=== PATIENT | female | born 2000 | race Caucasian/White ===

== ENCOUNTER → 2020-05-21 11:01 | Outpatient (CLI) | payer SELFPAY ==
[2020-04-13 12:40] VITALS: BMI 19.6
[2020-05-21 11:20] LABS: Absolute Lymphocyte Count 1.44 X10^3/uL (0.83-4.51); Absolute Neutrophil Count 5.9 X10^3/uL (2.0-7.7); Basophil# 0.05 X10^3/uL; Basophil% 0.6 % (0-1); Eosinophil# 0.12 X10^3/uL; Eosinophils% 1.5 % (0-5); Hematocrit 38.4 % (37-47); Hemoglobin 13.1 g/dL (12.0-15.0); Lymphocyte # 1.44 X10^3/ul (4.0); Lymphocyte % 17.6 % (19-41); Mean Corp Hgb Conc 34.1 g/dL (32-36); Mean Corpuscular Hgb 29.2 pg (27.0-32.0); Mean Corpuscular Volume 85.7 fL (81-99); Mean Platelet Vol. 9.4 fl (6.2-12.0); Monocyte# 0.69 X10^3/uL; Monocyte% 8.4 % (0-10); NRBC Flagged by Analyzer 0 % (0-5); Neutrophil # 5.87 X10^3/uL (2.7-7.7); Neutrophil % 71.7 % (47-70); Platelet Count 289 K/mm3 (150-450); RBC Distribution Width CV 12.6 % (11.6-14.6); RBC Distribution Width SD 39.1 fl (35.1-43.9); Red Blood Count 4.48 M/mm3 (4.2-5.4); White Blood Count 8.2 K/mm3 (4.4-11.0)
[2020-05-21 12:33] LABS: HIV - WCH Non-Reactive (Nonreactive); Hepatitis B Surface Antigen Non-Reactive (Nonreactive); Hepatitis C Antibody Non-Reactive (Nonreactive); Rubella IgG Reactive (Nonreactive)
[2020-05-21 18:54] LABS: Amphetamine Urine VISTA NEGATIVE (<1000 ng/mL); Barbiturate Urine VISTA NEGATIVE (< 200 ng/mL); Benzodiazepine Urine VISTA NEGATIVE (< 200 ng/mL); Cocaine Urine VISTA NEGATIVE (< 300 ng/mL); Ecstacy Urine VISTA NEGATIVE (< 500 ng/mL); Methadone Urine VISTA NEGATIVE (< 300 ng/mL); PCP Urine VISTA NEGATIVE (< 25 ng/mL); THC Urine VISTA NEGATIVE (< 50 ng/mL); Vista UDS pH Range 6
[2020-05-22 03:33] LABS: Rapid Plasmin Reagin (RPR) NONREACTIVE (NONREACTIVE)
[2020-05-26 08:08] LABS: Chlamydia By Nucleic Acid AMP Negative (Negative)
[2020-05-26 09:52] LABS: Gonococcus By Nucleic Acid AMP Negative (Negative)
[2020-05-26 16:43] LABS: HPV Reflexed? NOT INDICATED
== END ==
PROVIDERS: Referring Provider Obstetrics & Gynecology; Visit Provider Obstetrics & Gynecology
DX: Z34.90 Encounter for supervision of normal pregnancy, unspecified, unspecified trimester (principal)
CPT/HCPCS: 36415; 80307; 85025; 86592; 86703; 86762; 86803; 86850; 86900; 86901; 87086; 87340; 87491; 87591; 88175; G0145

== ENCOUNTER → 2020-07-24 16:34 | Outpatient (CLI) | payer SELFPAY ==
[2020-07-24 14:42] VITALS: BMI 22.3
== END ==
PROVIDERS: Referring Provider Obstetrics & Gynecology; Visit Provider Obstetrics & Gynecology
DX: O26.899 Other specified pregnancy related conditions, unspecified trimester (principal); R10.2 Pelvic and perineal pain; Z3A.00 Weeks of gestation of pregnancy not specified
CPT/HCPCS: 87086; 87088

== ENCOUNTER → 2020-07-29 13:46 | Outpatient (CLI) | payer SELFPAY ==
[2020-06-18 09:39] VITALS: BMI 21.2
[2020-07-24 14:42] VITALS: BMI 22.3
--- NOTE | 2020-07-29 13:49 | US_ITS ---
STUDY: SECOND AND THIRD TRIMESTER OBSTETRICAL ULTRASOUND REASON FOR EXAM: Female, 19 years old anatomy LMP: 03/13/2020. TECHNIQUE: Transabdominal TECHNICAL QUALITY: Adequate. PRIOR ULTRASOUND: None. FINDINGS: There is a single intrauterine fetus. The fetus is in a transverse lie with the head on the maternal right side. There is demonstrated cardiac activity with a heart rate of 130 bpm. There is a normal amniotic fluid volume. The largest amniotic fluid pocket measures 7 cm x 3.3 cm. The amniotic fluid index (NAIF) is within normal limits. The placenta is anterior in location and is not low lying. There are Grade 0 placental changes. The cervix measures 4.6 cm in length. The bilateral adnexal regions are normal. BIOMETRY: BPD: 4.38 cm: 19 weeks, 1 days HC: 17.19 cm: 19 weeks, 5 days AC: 14.8 cm: 20 weeks, 0 days FL: 3.12 cm: 19 weeks, 4 days CI: 71.5% FL/BPD: 71.4% FL/HC: FL/AC: 21.1% HC/AC: 1.16 age by current US: 19 weeks, 3 days. LISA by current US: 12/20/2020. Estimated weight: 316 grams, +/- 47 grams, 51 %. Age by LMP: 19 weeks, 5 days. LISA by LMP: 12/18/2020. ANATOMY: Gender: Female Cranium: Normal lateral ventricles. Normal choroid plexus. Normal cerebellum. Normal cisterna magna. Normal face, nose and lips. Chest: Normal 4-chamber heart. Abdomen/Pelvis: Normal diaphragm. Normal stomach. Normal abdominal wall. Normal cord insertion. Normal 3 vessel cord. Normal kidneys. Normal bladder. Spine: Normal cervical spine. Normal thoracic spine. Normal lumbar spine. Normal sacrum. Extremities: Normal bilateral upper extremities. Normal bilateral lower extremities. US/OB Anatomy Scan IMPRESSION: Single live uterine gestation with a mean gestational age of 19 weeks and 3 days. Electronically Signed: Mark Ballard MD at 15:03 EST , Service support ,
== END ==
PROVIDERS: Referring Provider Obstetrics & Gynecology; Visit Provider Obstetrics & Gynecology
DX: Z34.90 Encounter for supervision of normal pregnancy, unspecified, unspecified trimester (principal)
CPT/HCPCS: 76805

== ENCOUNTER → 2020-09-10 10:55 | Outpatient (CLI) | payer SELFPAY ==
[2020-08-13 11:50] VITALS: BMI 22.8
[2020-09-10 11:13] LABS: Absolute Lymphocyte Count 1.66 X10^3/uL (0.83-4.51); Absolute Neutrophil Count 7.1 X10^3/uL (2.0-7.7); Basophil# 0.03 X10^3/uL; Basophil% 0.3 % (0-1); Eosinophil# 0.12 X10^3/uL; Eosinophils% 1.2 % (0-5); Hematocrit 34.7 % (37-47); Hemoglobin 11.9 g/dL (12.0-15.0); Lymphocyte # 1.66 X10^3/ul (4.0); Lymphocyte % 17.2 % (19-41); Mean Corp Hgb Conc 34.3 g/dL (32-36); Mean Corpuscular Hgb 31.6 pg (27.0-32.0); Mean Platelet Vol. 9.4 fl (6.2-12.0); Monocyte# 0.69 X10^3/uL; Monocyte% 7.2 % (0-10); NRBC Flagged by Analyzer 0 % (0-5); Neutrophil % 73.7 % (47-70); Platelet Count 247 K/mm3 (150-450); RBC Distribution Width CV 13.2 % (11.6-14.6); RBC Distribution Width SD 43.5 fl (35.1-43.9); Red Blood Count 3.77 M/mm3 (4.2-5.4); White Blood Count 9.6 K/mm3 (4.4-11.0)
[2020-09-10 11:39] LABS: Glucose Challenge Gest 1H 50g 118 mg/dL (70-140)
== END ==
PROVIDERS: Referring Provider Obstetrics & Gynecology; Visit Provider Obstetrics & Gynecology
DX: Z34.90 Encounter for supervision of normal pregnancy, unspecified, unspecified trimester (principal)
CPT/HCPCS: 36415; 82950; 85025

== ENCOUNTER → 2020-11-23 16:29 | Outpatient (CLI) | payer SELFPAY ==
[2020-11-23 13:35] VITALS: BMI 24.8
== END ==
PROVIDERS: Referring Provider Obstetrics & Gynecology; Visit Provider Obstetrics & Gynecology
DX: Z34.90 Encounter for supervision of normal pregnancy, unspecified, unspecified trimester (principal)
CPT/HCPCS: 87081

== ENCOUNTER → 2020-12-14 18:28 | Outpatient (CLI) | payer SELFPAY ==
[2020-12-14 13:59] VITALS: BMI 24.8
--- NOTE | 2020-12-14 18:33 | US_ITS ---
STUDY: SECOND AND THIRD TRIMESTER OBSTETRICAL ULTRASOUND - LIMITED REASON FOR EXAM: Female, 20 years old routine survey LMP: 03/13/2020 PRIOR ULTRASOUND: 07/29/2020 TECHNIQUE: Transabdominal TECHNICAL QUALITY: Adequate. FINDINGS: There is a single intrauterine fetus. The fetus is in a cephalic presentation. There is demonstrated cardiac activity with a heart rate of 153 bpm. There is a normal amniotic fluid volume. The largest amniotic fluid pocket measures 3.5 cm. The amniotic fluid index (NAIF) is 12.13 cm. The placenta is anterior in location and is not low lying. There are Grade 2 placental changes. The cervix was not visualized BIOMETRY: BPD: 8.90 cm: 36 weeks, 0 days HC: 33.42 cm: 38 weeks, 1 days AC: 33.41 cm: 37 weeks, 2 days FL: 7.13 cm: 36 weeks, 3 days LISA by previous study, 19 weeks, 3 days with LISA of 12/20/2020 age by current US: 36 weeks, 5 days. LISA by current US: 01/06/2021. Estimated weight: 3094 grams, +/- 464 grams, 18 percentile. US/OB Limited With Biometrics IMPRESSION: Single live intrauterine at 36 weeks, 5 days by current ultrasound. LISA of 01/06/2021. Heart rate of 153 bpm. No suspicious sonographic findings LISA on current study measures 2 weeks later than on the previous study Electronically Signed: Todd Ramirez MD at 19:17 EDT , Service support ,
== END ==
PROVIDERS: Visit Provider Obstetrics & Gynecology
DX: Z34.93 Encounter for supervision of normal pregnancy, unspecified, third trimester (principal)
CPT/HCPCS: 76816

== ENCOUNTER 2020-12-23 08:34 | Inpatient (IN) | payer SELFPAY ==
[2020-12-14 13:59] VITALS: BMI 24.8
[2020-12-23] VITALS (11 sets, daily range): BP systolic 98–125; BP diastolic 51–88; PULSE 79–117; RESP 18; TEMP 37.1–37.7; O2SAT 99; BMI 26.2
[2020-12-23 09:05] LABS: Absolute Lymphocyte Count 2.25 X10^3/uL (0.83-4.51); Absolute Neutrophil Count 11.3 X10^3/uL (2.0-7.7); Basophil# 0.05 X10^3/uL; Basophil% 0.3 % (0-1); Eosinophil# 0.08 X10^3/uL; Eosinophils% 0.5 % (0-5); Hematocrit 39.9 % (37-47); Hemoglobin 13.6 g/dL (12.0-15.0); Lymphocyte # 2.25 X10^3/ul (0.83-4.51); Lymphocyte % 15.4 % (19-41); Mean Corp Hgb Conc 34.1 g/dL (32-36); Mean Corpuscular Hgb 31.2 pg (27.0-32.0); Mean Corpuscular Volume 91.5 fL (81-99); Mean Platelet Vol. 11.1 fl (6.2-12.0); Monocyte# 0.77 X10^3/uL; Monocyte% 5.3 % (0-10); NRBC Flagged by Analyzer 0 % (0-5); Neutrophil # 11.34 X10^3/uL (2.7-7.7); Platelet Count 213 K/mm3 (150-450); RBC Distribution Width CV 13.2 % (11.6-14.6); RBC Distribution Width SD 44.1 fl (35.1-43.9); Red Blood Count 4.36 M/mm3 (4.2-5.4); White Blood Count 14.6 K/mm3 (4.4-11.0)
[2020-12-23] MEDS: 0.9% Saline Lock 10 ML Syringe IV (09:25)
--- NOTE | 2020-12-23 12:26 | HP.PCM.OB_ITS ---
HPI - General General Date of Admission: 12/23/20 HPI Narrative HAVEN RICKS, is a 20 F at 40 weeks who presents in active labor Maternal Data Information LISA Calculator Estimated Delivery Date Method Current WG Current Estimate 12/18/20 LMP (Certain) 40w 5d Other Estimates 12/14/20 Ultrasound #1 41w 2d PFSH PFSH Home Medications multivitamin no.47-iron fum 27 mg-folate no.1 1 mg-dha 300 mg capsule cap PO 05/12/20 [History Last Taken Unknown] Allergy/AdvReac Type Severity Reaction Status Date / Time No Known Allergies Allergy Verified 12/07/20 13:43 Surgical History History of hernia surgery Social History adopted: No household members: spouse current occupational status: employed Smoking Status: Never smoker second hand exposure: No alcohol intake: never substance use type: does not use what type of physical activity do you participate in: walking seatbelt use: always do you feel safe at home: Yes additional social history: Urszula- Works at a [employer] 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 History 1 Elective abortions Hx Para 0 Spontaneous abortions Hx # Term Pregnancies Ectopic pregnancies Hx # Pregnancies Multiple births # of living children Visit Details Expected Delivery Route/Plan Labor Preferences- CB/BF classes: yes labor support person: Urszula labor intervention preferences: minimal pain management options preferred: limited interventions cut cord/dad catch: yes : yes PP control planned: condoms discussed possible routes of delivery and associated risks: [] special requests: [] Plans flu vaccine: no tdap vaccine: considering rhogam: na LARC form signed: yes movement and labor precautions reviewed. Problem list reviewed and updated with the most current plan of care details and appropriate orders placed. Relevant counseling for the gestational age provided. Continue routine care and follow up unless otherwise noted in visit notes/problem list details OB Flowsheet Initial Weight: 108 lb Date -?-?-?-?-?-?-?-?-?-?-?-?- EGA Weight BP Urine Prot -?-?-?-?-?-?-?-?-?-?-?-?- Glucose FHR FuHt Pres Dilation -?-?-?-?-?-?-?-?-?-?-?-?- Effaced St Visit Note 05/21/20 -?-?-?-?-?-?-?-?-?-?-?-?- 9w 6d 108 lb 8 oz (+8 oz) 130/70 -?-?-?-?-?-?-?-?-?-?-?-?- 170 -?-?-?-?-?-?-?-?-?-?-?-?- GP - CRL 31mm co nsistent with LMP 06/18/20 -?-?-?-?-?-?-?-?-?-?-?-?- 13w 6d 112 lb 8 oz (+4 lb 8 oz) 130/70 Negative -?-?-?-?-?-?-?-?-?-?-?-?- Negative 145 -?-?-?-?-?-?-?-?-?-?-?-?- GP - no cramping or bleeding. Anatomy scan ordered. PRR. 07/15/20 -?-?-?-?-?-?-?-?-?-?-?-?- 17w 5d 117 lb 2 oz (+9 lb 2 oz) 118/80 Negative -?-?-?-?-?-?-?-?-?-?-?-?- Negative 148 -?-?-?-?-?-?-?-?-?-?-?-?- MH-NO VB, LOF. S ome flutters. US is 07/29. 08/13/20 -?-?-?-?-?-?-?-?-?-?-?-?- 21w 6d 121 lb (+13 lb) 118/72 Negative -?-?-?-?-?-?-?-?-?-?-?-?- Negative 145 -?-?-?-?-?-?-?-?-?-?-?-?- GP - no LOF, VB, DFM, ctx. Having a girl! Discussed CB classes. 09/10/20 -?-?-?-?-?-?-?-?-?-?-?-?- 25w 6d 126 lb 4 oz (+18 lb 4 oz) 118/68 Negative -?-?-?-?-?-?-?-?-?-?-?-?- Negative 150 25 -?-?-?-?-?-?-?-?-?-?-?-?- GP - no LOF, VB, DFM, ctx. 28w labs reviewed and normal 09/24/20 -?-?-?-?-?-?-?-?-?-?-?-?- 27w 6d 125 lb 8 oz (+17 lb 8 oz) 106/60 Negative -?-?-?-?-?-?-?-?-?-?-?-?- Negative 142 27 -?-?-?-?-?-?-?-?-?-?-?-?- MH-No Vb, LOF. G ood FM. Reviewed normal 28 wk labs. Declines tdap. May do later. LARC 10/19/20 -?-?-?-?-?-?-?-?-?-?-?-?- 31w 3d 131 lb 6 oz (+23 lb 6 oz) 132/76 Negative -?-?-?-?-?-?-?-?-?-?-?-?- Negative 140 30 -?-?-?-?-?-?-?-?-?-?-?-?- GP - no LOF, VB, DFM, ctx. Denies complaints. Discussed pediatricians. 11/02/20 -?-?-?-?-?-?-?-?-?-?-?-?- 33w 3d 134 lb (+26 lb) 96/62 Negative -?-?-?-?-?-?-?-?-?-?-?-?- Negative 140 32 Cephalic -?-?-?-?--?-?-?-?-?-?-?-?- SM- no vb lof go od fm no regular ctx 11/18/20 -?-?-?-?-?-?-?-?-?-?-?-?- 35w 5d 140 lb 4 oz (+32 lb 4 oz) 130/70 Negative -?-?-?-?-?-?-?-?-?-?-?-?- Negative 155 35 Cephalic -?-?-?-?-?-?-?-?-?-?-?-?- GP - no LOF, VB, DFM, ctx. Denies complaints. 11/23/20 -?-?-?-?-?-?-?-?-?-?-?-?- 36w 3d 136 lb (+28 lb) 104/76 Negative -?-?-?-?-?-?-?-?-?-?-?-?- Negative 140 35 Cephalic 1 -?-?-?-?-?-?-?--?-?-?-?-?- 50 -1 SM- no vb lof good fm no regular ctx gbs 11/30/20 -?-?-?-?-?-?-?-?-?-?-?-?- 37w 3d 139 lb (+31 lb) 122/82 Negative -?-?-?-?-?-?-?-?-?-?-?-?- Negative 140 150 36 Cephalic 2 -?-?-?-?-?-?-?-?-?-?-?-?- 70 -1 SM- no vb lo SM- no vb lof good fm no egu lar ctx 12/07/20 -?-?-?-?-?-?-?-?-?-?-?-?- 38w 3d 142 lb (+34 lb) 124/68 Negative -?-?-?-?-?-?-?-?-?-?-?-?- Negative 155 38 Cephalic 3 -?-?-?-?-?-?-?-?-?-?-?-?- 70 -1 GP - no LO F, VB, DFM, ctx. Membranes swept today. 12/14/20 -?-?-?-?-?-?-?-?-?-?-?-?- 39w 3d 139 lb (+31 lb) 122/84 Negative -?-?-?-?-?-?-?-?-?-?-?-?- Negative 135 35 Cephalic 3 -?-?-?-?-?-?-?-?-?-?-?-?- 70 0 SM- no vb lof good fm n oreuglar ctx. discussed FH drop, check growth us 12/23/20 -?-?-?-?-?-?-?-?-?-?-?-?- 40w 5d 138 lb 14.259 oz (+30 lb 14.259 oz) 125/88 106/56 98/51 107/55 111/58 105/57 111/58 110/55 115/66 -?-?-?-?-?-?-?-?-?-?-?-?- -?-?-?-?-?-?-?-?-?-?-?-?- NST FHR Rate Baby A Baseline: 140 Variability:: Moderate Accelerations:: 15 x 15 Decelerations:: Variable FHR Category:: Category II Uterine Activity:: q2 min ROS Eyes Eyes: Reports systems reviewed and no addt'l complaints, except as documented ENT HEENT: Reports systems reviewed and no addt'l complaints, except as documented Cardiovascular Cardiovascular: Reports systems reviewed and no addt'l complaints, except as documented Respiratory/Chest Respiratory/Chest: Reports systems reviewed and no addt'l complaints, except as documented Gastrointestinal Gastrointestinal: Reports systems reviewed and no addt'l complaints, except as documented Genitourinary Genitourinary: Reports systems reviewed and no addt'l complaints, except as documented Musculoskeletal Musculoskeletal: Reports systems reviewed and no addt'l complaints, except as documented Integumentary Integumentary: Reports systems reviewed and no addt'l complaints, except as documented Neurologic Neurologic: Reports systems reviewed and no addt'l complaints, except as documented Psychiatric Psychiatric: Reports systems reviewed and no addt'l complaints, except as documented Endocrine Endocrinology: Reports systems reviewed and no addt'l complaints, except as documented Hematologic/Lymphatic Hematologic/Lymphatic: Reports systems reviewed and no addt'l complaints, except as documented Allergic/Immunologic Allergic/Immunologic: Reports systems reviewed and no addt'l complaints, except as documented Vital Signs Vital Signs Vital Signs: 12/23/20 08:43 12/23/20 10:19 12/23/20 10:33 Pulse Rate 89 79 88 Blood Pressure 125/88 H 106/56 L 98/51 L BP Systolic 125 106 98 BP Diastolic 88 56 51 12/23/20 10:48 12/23/20 11:03 12/23/20 11:18 Pulse Rate 85 84 83 Blood Pressure 107/55 L 111/58 L 105/57 L BP Systolic 107 111 105 BP Diastolic 55 58 57 12/23/20 11:33 12/23/20 11:48 12/23/20 12:00 Pulse Rate 88 87 117 H Blood Pressure 111/58 L 110/55 L 115/66 BP Systolic 111 110 115 BP Diastolic 58 55 66 Weight Weight: 138 lb 14.259 oz Body Mass Index (BMI) 26.2 Physical Exam Const alert, oriented x3, no apparent distress, average body habitus, healthy appearing and well nourished HEENT normocephalic and moist oral mucous membranes Head and Scalp: atraumatic Eyes PERRL and EOMs intact bilaterally Neck full ROM Resp normal respiratory effort, no retractions and no use of accessory muscles Cardio regular rate and regular rhythm GI soft to palpation, non-tender and non-distended Extremity normal to inspection and full ROM Skin no rashes or lesions noted Neuro no focal motor deficits and no sensory deficits noted Psych mental status grossly normal, affect normal, speech normal and activity/motor behavior normal Labs Labs Labs: Blood Type A POSITIVE Antibody Screen NEGATIVE Hct 39.9 % (37-47) Hgb 13.6 g/dL (12.0-15.0) Obstetrics US Rubella IgG Antibody Reactive (Nonreactive) Hep Bs Antigen Non-Reactive (Nonreactive) Neisseria gonorrhoeae DNA (EVELYNE) Negative (Negative) HIV 1&2 Antibody Non-Reactive (Nonreactive) Glucose 1 Hr 50 gm 118 mg/dL (70-140) Assessment & Plan (1) Uterine size-date discrepancy, third trimester: COMMENT: US normal along with normal NAIF (2) Supervision of normal : QUALIFIERS: Normal : normal first Trimester: third trimester Qualified Code(s): Z34.03 - Encounter for supervision of normal first , third trimester COMMENT: PRR LISA: 12/18/20 Spouse: Urszula (3) : QUALIFIERS: Weeks of gestation: 39 weeks Qualified Code(s): Z3A.39 - 39 weeks gestation of COMMENT: declines genetic, carrier and NTD; NL anatomy GBS negative (4) Active labor at term: PLAN: Patient presents IAL, plan expectant management for , pitocin/AROM PRN if needed. Pain management: desires natural. GBS negative. Management of any complications: none I have reviewed the [facility] and made any clinically relevant updates.
--- NOTE | 2020-12-23 12:32 | EX.PCM.OBRPT ---
Assessment & Plan (1) Active labor at term: (2) Spontaneous vaginal delivery: (3) Uterine size-date discrepancy, third trimester: COMMENT: US normal along with normal NAIF (4) 35 weeks gestation of : COMMENT: electronic covid test ordered 11/17/20 (5) Supervision of normal : QUALIFIERS: Normal : normal first Trimester: third trimester Qualified Code(s): Z34.03 - Encounter for supervision of normal first , third trimester COMMENT: PRR LISA: 12/18/20 Spouse: Urszula (6) : QUALIFIERS: Weeks of gestation: 39 weeks Qualified Code(s): Z3A.39 - 39 weeks gestation of COMMENT: declines genetic, carrier and NTD; NL anatomy GBS negative Maternal Data Information LISA Calculator Estimated Delivery Date Method Current WG Current Estimate 12/18/20 LMP (Certain) 40w 5d Other Estimates 12/14/20 Ultrasound #1 41w 2d Vaginal Delivery Maternal Presentation Maternal Presentation: Active Labor Maternal Presentation: 20-year-old G1, P0 at 40 weeks gestation admitted in active labor. Patient made rapid cervical change from, to complete dilation after being augmented with artificial rupture of membranes Type of Induction: Amniotomy Operative Information Date of Procedure: 12/23/20 Pre-Operative Diagnosis: Term , active labor Post-Operative Diagnosis: Same Surgery / Procedure Performed: Spontaneous Vaginal Delivery Type of Anesthesia: Local with 1% Lidocaine Estimated Blood Loss: 150 cc Findings Description of Procedure: Patient began pushing and delivered the head in the MITCHELL presentation. The head was delivered atraumatically and no nuchal cord was noted. The anterior and posterior shoulders delivered without complication followed by the rest of the infant and the infant was placed on the maternal abdomen. Delayed cord clamping was employed for approximately 60 seconds. Cord was clamped and cut and gentle traction was applied to the cord and the placenta delivered spontaneously immediately following it was noted to be intact with three-vessel cord. The perineum and vagina were inspected and a midline second-degree perineal laceration was noted and repaired in standard fashion using 3-0 Vicryl Rapide suture. EBL was 150 cc. Patient and tolerated delivery well. Presentation: Vertex and MITCHELL Amniotic Membrane Rupture Type: Artificial Amniotic Fluid Description: Clear Placental Delivery Description: Spontaneous Placenta Disposition: [facility] Cord Vessel Description: 3 Vessels Cord Entanglement: None A Gender: Female Delayed Cord Clamping: Yes Post Vaginal Delivery Medications Given After Delivery: IV Pitocin Episiotomy Description: None Laceration: Midline, Perineal Extension/lac and 2nd degree Complication Complications: None Procedures Urinary/Genital [id number]: [id number] Vaginal Delivery [facility]
--- NOTE | 2020-12-23 12:36 | PCM.DC ---
Discharge Instructions Diet Discharge Diet: No restrictions Activity Discharge Activity: Return to Normal Activity, May Not Drive (while taking narcotic pain medications.) and May Shower May resume sexual activity in: 4-6 weeks Dressing / Incision Call your doctor if your incision/area has: Continuous Slow Oozing, Sudden Increased Bleeding, Increased Pain/ Swelling, Increased Redness and Foul Smelling Discharge Follow Up Care When: Call to make an appointment with your doctor in 6 weeks. If you had elevated Blood Pressure or 4th degree laceration you will need to be seen in 2 weeks. Test Results: Test results from this visit will be discussed in further detail at your follow-up appointment, if applicable. Discharge Plan Admission Admit Date/Time: 12/23/20 08:34 Primary Reason for Your Visit: Active labor Attending Provider: Svetlana Carver Primary Care Provider: Care Physician,No Primary Instructions Patient Instructions: After a Vaginal Discharge Orders/Prescriptions Prescriptions: New ibuprofen 800 mg tablet 800 mg PO Q8H PRN (Reason: pain) Qty: 30 RF: 1 Continued PNV-DHA 27 mg iron-1 mg -300 mg capsule PO RF: 0 Referrals / Follow Up: Care Physician,No Primary [Primary Care Provider] -
[2020-12-23] MEDS: Acetaminophen 500 MG Tablet PO (21:16)
[2020-12-24 00:18] VITALS: BP 103/61; PULSE 86; RESP 16; TEMP 36.3; O2SAT 99
[2020-12-24 04:30] VITALS: BP 111/53; PULSE 88; RESP 18; TEMP 36.4; O2SAT 98
[2020-12-24 08:00] VITALS: BP 93/49; PULSE 72; RESP 16; TEMP 37; O2SAT 98
--- NOTE | 2020-12-24 08:45 | PN.OBGYN_ITS ---
Subjective Subjective Patient doing well without complaints. Tolerating PO. Ambulating and voiding without difficulty. Breast feeding well. Denies chest pain, shortness of breath, calf pain/swelling, fevers, chills, lightheadedness. Objective Data Objective Data Vital Signs: Vital Signs Temp Pulse Resp BP Pulse Ox 98.6 F 72 16 93/49 L 98 12/24/20 08:00 12/24/20 08:00 12/24/20 08:00 12/24/20 08:00 12/24/20 08:00 Oxygen Delivery Method Room Air Weight: 138 lb 14.259 oz Body Mass Index (BMI) 26.2 Intake & Output: Intake and Output for Last 24 Hours 12/22/20 12/23/20 12/24/20 23:59 23:59 23:59 Output Total 1800 / 1800 Balance -1800 / -1800 Lab / Micro Data Result Diagrams: 12/23/20 08:50 Labs: Laboratory Results - last 24 hr 12/23/20 12/23/20 08:50 08:50 WBC 14.6 H RBC 4.36 Hgb 13.6 Hct 39.9 MCV 91.5 MCH 31.2 MCHC 34.1 RDW Std Deviation 44.1 H RDW Coeff of Kayla 13.2 Plt Count 213 MPV 11.1 Immature Gran % (Auto) 0.500 Neut % (Auto) 78.0 H Lymph % (Auto) 15.4 L [place] % (Auto) 5.3 Eos % (Auto) 0.5 Baso % (Auto) 0.3 Absolute Neuts (auto) 11.3 H Absolute Lymphs (auto) 2.25 Nucleated RBC % 0 Blood Type A POSITIVE Antibody Screen NEGATIVE ROS Constitutional Constitutional: Denies fever(s) Cardiovascular Cardiovascular: Denies chest pain, dyspnea or lightheadedness Gastrointestinal Gastrointestinal: Reports abdominal pain; Denies constipation or diarrhea Neurologic Neurologic: Denies dizziness or headache(s) Physical Exam Const alert, oriented x3, no apparent distress, average body habitus, healthy appearing and well nourished HEENT normocephalic Head and Scalp: atraumatic Eyes PERRL and EOMs intact bilaterally Neck full ROM Lymph Lymphatic: no lymphadenopathy noted Resp normal respiratory effort, no retractions and no use of accessory muscles Cardio regular rate GI soft to palpation, non-tender and non-distended Palpation: other Other Details: fundus firm Extremity normal to inspection and no clubbing, cyanosis or edema Skin no rashes or lesions noted Neuro no focal motor deficits and no sensory deficits noted Psych mental status grossly normal, affect normal and speech normal Assessment & Plan (1) Spontaneous vaginal delivery: PLAN: s/p PPD # 1 1. routine post delivery care 2. breast feeding- support given 3. rh positive 4. rubella immune 5. Shingles - keep area covered, no indication for medication as no new lesions, peds aware
== END 2020-12-24 14:15 | disposition home or self-care (01) | DRG 806 ==
LOC: WPOUT 08:37 → WP 08:37
PROVIDERS: Admitting Provider Obstetrics & Gynecology; Referring Provider Obstetrics & Gynecology; Visit Provider Obstetrics & Gynecology
DX: O26.843 Uterine size-date discrepancy, third trimester (principal); O98.52 Other viral diseases complicating childbirth; Z37.0 Single live birth; O70.1 Second degree perineal laceration during delivery; Z3A.40 40 weeks gestation of pregnancy
CPT/HCPCS: 59025; 59050; 85025; 86850; 86900; 86901; 99218; A4216; G0378

== ENCOUNTER → 2022-09-06 | Outpatient (CLI) | payer SELFPAY ==
[2022-09-06 16:40] LABS: Absolute Lymphocyte Count 2.49 X10^3/uL (0.83-4.51); Basophil# 0.06 X10^3/uL; Basophil% 0.7 % (0-1); Eosinophil# 0.33 X10^3/uL; Eosinophils% 3.8 % (0-5); Hematocrit 40.4 % (37-47); Hemoglobin 13.1 g/dL (12.0-15.0); Lymphocyte # 2.49 X10^3/ul (0.83-4.51); Mean Corp Hgb Conc 32.4 g/dL (32-36); Mean Corpuscular Hgb 28.6 pg (27.0-32.0); Mean Corpuscular Volume 88.2 fL (81-99); Mean Platelet Vol. 9.7 fl (6.2-12.0); Monocyte# 0.67 X10^3/uL; Monocyte% 7.8 % (0-10); NRBC Flagged by Analyzer 0 % (0-5); Neutrophil # 5.02 X10^3/uL (2.7-7.7); Neutrophil % 58.4 % (47-70); Platelet Count 250 K/mm3 (150-450); RBC Distribution Width CV 12.5 % (11.6-14.6); RBC Distribution Width SD 40.8 fl (35.1-43.9); Red Blood Count 4.58 M/mm3 (4.2-5.4); White Blood Count 8.6 K/mm3 (4.4-11.0)
[2022-09-06 17:39] LABS: HIV - WCH Non-Reactive (Nonreactive); Hepatitis B Surface Antigen Non-Reactive (Nonreactive); Hepatitis C Antibody Non-Reactive (Nonreactive); Rubella IgG Reactive (Nonreactive); Syphilis Antibodies Non-reactive
[2022-09-09 00:06] LABS: Chlamydia By Nucleic Acid AMP Negative (Negative)
[2022-09-09 08:36] LABS: Gonococcus By Nucleic Acid AMP Negative (Negative)
[2022-09-12 19:36] LABS: HPV Reflexed? NOT INDICATED
== END | disposition home or self-care (01) ==
PROVIDERS: Visit Provider Obstetrics & Gynecology
DX: O09.90 Supervision of high risk pregnancy, unspecified, unspecified trimester (principal); Z3A.00 Weeks of gestation of pregnancy not specified
CPT/HCPCS: 36415; 85025; 86703; 86762; 86780; 86803; 86850; 86900; 86901; 87086; 87088; 87340; 87491; 87591; 88175; G0145

== ENCOUNTER → 2022-11-08 | Outpatient (CLI) | payer SELFPAY ==
--- NOTE | 2022-11-08 14:26 | US_ITS ---
STUDY: SECOND AND THIRD TRIMESTER OBSTETRICAL ULTRASOUND REASON FOR EXAM: Female, 22 years old Anatomy scan LMP: 06/25/2022 TECHNIQUE: Transabdominal and Transvaginal TECHNICAL QUALITY: Adequate. PRIOR ULTRASOUND: None. FINDINGS: There is a single intrauterine fetus. The fetus is in a cephalic presentation. There is demonstrated cardiac activity with a heart rate of 150 bpm. There is a normal amniotic fluid volume. The largest amniotic fluid pocket measures 3.8 cm. The placenta is posterior in location and is not low lying. There are Grade 1 placental changes. The cervix measures 3.9 cm in length. The bilateral adnexal regions are normal. BIOMETRY: BPD: 4.5: 19 weeks, 4 days HC: 16.4: 19 weeks, 4 days AC: 13.8: 19 weeks, 1 days FL: 2.9: 19 weeks, 0 days CI: FL/BPD: FL/HC: FL/AC: HC/AC: age by current US: 19 weeks, 1 days. LISA by current US: 04/03/2023. Estimated weight: 278 grams, +/- 42 grams, 30 %. age by prior US: weeks, days. LISA by prior US: . Age by LMP: 19 weeks, 3 days. LISA by LMP: 04/01/2023. ANATOMY: Gender: Female Cranium: Normal lateral ventricles. Normal choroid plexus. Normal cerebellum. Normal cisterna magna. Normal face, nose and lips. Chest: Normal 4-chamber heart. Abdomen/Pelvis: Normal diaphragm. Normal stomach. Normal abdominal wall. Normal cord insertion. Normal 3 vessel cord. Normal kidneys. Normal bladder. Spine: Normal cervical spine. Normal thoracic spine. Normal lumbar spine. Normal sacrum. Extremities: Normal bilateral upper extremities. Normal bilateral lower extremities. US/OB Anatomy w/ Transvaginal IMPRESSION: Single live fetus in a vertex presentation. No demonstrated anatomic abnormality. Placenta is grade 1 and is not low-lying. Cervix is closed. age by current US: 19 weeks, 1 days. LISA by current US: 04/03/2023. Estimated weight: 278 grams, +/- 42 grams, 30 %. Electronically Signed: Ricardo Ni MD at 19:18 EDT ,
== END | disposition home or self-care (01) ==
PROVIDERS: Referring Provider Obstetrics & Gynecology; Visit Provider Obstetrics & Gynecology
DX: O09.90 Supervision of high risk pregnancy, unspecified, unspecified trimester (principal)
CPT/HCPCS: 76805; 76817

== ENCOUNTER → 2023-01-04 | Outpatient (CLI) | payer SELFPAY ==
[2023-01-04 10:55] LABS: Absolute Lymphocyte Count 1.46 X10^3/uL (0.83-4.51); Absolute Neutrophil Count 4.6 X10^3/uL (2.0-7.7); Basophil# 0.03 X10^3/uL; Basophil% 0.5 % (0-1); Eosinophil# 0.08 X10^3/uL; Eosinophils% 1.2 % (0-5); Hematocrit 33.1 % (37-47); Hemoglobin 10.8 g/dL (12.0-15.0); Lymphocyte # 1.46 X10^3/ul (0.83-4.51); Lymphocyte % 22.3 % (19-41); Mean Corp Hgb Conc 32.6 g/dL (32-36); Mean Corpuscular Hgb 30.7 pg (27.0-32.0); Mean Platelet Vol. 9.6 fl (6.2-12.0); Monocyte# 0.34 X10^3/uL; Monocyte% 5.2 % (0-10); NRBC Flagged by Analyzer 0 % (0-5); Neutrophil # 4.63 X10^3/uL (2.7-7.7); Neutrophil % 70.5 % (47-70); POSITIVE MORPHOLOGY YES; Platelet Count 187 K/mm3 (150-450); RBC Distribution Width CV 13.5 % (11.6-14.6); RBC Distribution Width SD 46.2 fl (35.1-43.9); Red Blood Count 3.52 M/mm3 (4.2-5.4); White Blood Count 6.6 K/mm3 (4.4-11.0)
[2023-01-04 10:58] LABS: Differential Indicated SCAN CRITERIA MET
[2023-01-04 11:21] LABS: Glucose Challenge Gest 1H 50g 72 mg/dL (70-140)
[2023-01-04 11:22] LABS: Atypical Lymphocyte 1+ %
[2023-01-04 11:47] LABS: HIV - WCH Non-Reactive (Nonreactive); Syphilis Antibodies Non-reactive
== END | disposition home or self-care (01) ==
PROVIDERS: Referring Provider Obstetrics & Gynecology; Visit Provider Obstetrics & Gynecology
DX: O09.90 Supervision of high risk pregnancy, unspecified, unspecified trimester (principal); Z3A.00 Weeks of gestation of pregnancy not specified
CPT/HCPCS: 36415; 82950; 85025; 86703; 86780

== ENCOUNTER → 2023-02-02 | Outpatient (CLI) | payer SELFPAY ==
[2023-02-02 10:02] LABS: Absolute Lymphocyte Count 1.65 X10^3/uL (0.83-4.51); Absolute Neutrophil Count 5.8 X10^3/uL (2.0-7.7); Basophil# 0.06 X10^3/uL; Basophil% 0.7 % (0-1); Eosinophil# 0.15 X10^3/uL; Eosinophils% 1.8 % (0-5); Hemoglobin 11.9 g/dL (12.0-15.0); Lymphocyte # 1.65 X10^3/ul (0.83-4.51); Lymphocyte % 19.8 % (19-41); Mean Corpuscular Hgb 32.1 pg (27.0-32.0); Mean Corpuscular Volume 94.3 fL (81-99); Mean Platelet Vol. 9.4 fl (6.2-12.0); Monocyte# 0.58 X10^3/uL; NRBC Flagged by Analyzer 0 % (0-5); Neutrophil # 5.84 X10^3/uL (2.7-7.7); Neutrophil % 70.1 % (47-70); Platelet Count 199 K/mm3 (150-450); RBC Distribution Width CV 13.4 % (11.6-14.6); RBC Distribution Width SD 46.1 fl (35.1-43.9); Red Blood Count 3.71 M/mm3 (4.2-5.4); White Blood Count 8.3 K/mm3 (4.4-11.0)
== END | disposition home or self-care (01) ==
PROVIDERS: Referring Provider Registered Nurse; Visit Provider Registered Nurse
DX: D64.9 Anemia, unspecified (principal)
CPT/HCPCS: 36415; 85025

== ENCOUNTER → 2023-03-02 | Outpatient (CLI) | payer SELFPAY ==
--- NOTE | 2023-03-02 18:31 | US_ITS ---
STUDY: SECOND AND THIRD TRIMESTER OBSTETRICAL ULTRASOUND - LIMITED REASON FOR EXAM: Female, 22 years old SGA LMP: 06/25/2022. PRIOR ULTRASOUND: 11/08/2022. TECHNIQUE: Transabdominal TECHNICAL QUALITY: Adequate. FINDINGS: There is a single intrauterine fetus. The fetus is in a cephalic presentation. There is demonstrated cardiac activity with a heart rate of 145 bpm. There is a normal amniotic fluid volume. The largest amniotic fluid pocket measures 3.7 cm. The amniotic fluid index (NAIF) is 11.3 cm. The placenta is posterior in location and is not low lying. There are Grade 1 placental changes. The cervix measures 2.8 cm in length. The cervix is closed. BIOMETRY: BPD: 8.11 cm: 32 weeks, 4 days HC: 31.44 cm: 35 weeks, 2 days AC: 29.78 cm: 33 weeks, 5 days FL: 6.84 cm: 35 weeks, 1 days Age by LMP: 35 weeks, 5 days. LISA by LMP: 04/01/2023. LISA by prior US: 04/03/2023. age by current US: 34 weeks, 1 days. LISA by current US: 04/12/2023. Estimated weight: 2342 grams, +/- 351 grams, 13 percentile. US/OB Limited With Biometrics IMPRESSION: Single intrauterine with ultrasound age of 34 weeks and 1 day and estimated date of delivery of 04/12/2023. Vertex presentation. Posterior placenta, no previa. Normal amniotic fluid. Normal cardiac activity. Electronically Signed: Aislinn Medina MD at 19:15 EDT ,
== END | disposition home or self-care (01) ==
LOC: US 18:26
PROVIDERS: Visit Provider Advanced Practice Midwife
DX: Z34.90 Encounter for supervision of normal pregnancy, unspecified, unspecified trimester (principal)
CPT/HCPCS: 76816

== ENCOUNTER → 2023-03-09 | Outpatient (CLI) | payer SELFPAY | END | disposition home or self-care (01) | LOC: LABSPEC 12:27 | PROVIDERS: Referring Provider Obstetrics & Gynecology; Visit Provider Obstetrics & Gynecology | DX: O09.90 Supervision of high risk pregnancy, unspecified, unspecified trimester (principal); Z3A.00 Weeks of gestation of pregnancy not specified | CPT/HCPCS: 87081 ==

== ENCOUNTER 2023-03-31 18:40 | Inpatient (IN) | payer SELFPAY ==
[2023-03-31] VITALS (13 sets, daily range): BP systolic 101–131; BP diastolic 51–68; PULSE 83–105; TEMP 36.6–37.4; O2SAT 98; BMI 24.0
[2023-03-31 18:41] LABS: Absolute Lymphocyte Count 1.76 X10^3/uL (0.83-4.51); Absolute Neutrophil Count 9.3 X10^3/uL (2.0-7.7); Basophil# 0.04 X10^3/uL; Basophil% 0.3 % (0-1); Eosinophil# 0.11 X10^3/uL; Eosinophils% 0.9 % (0-5); Hematocrit 36.4 % (37-47); Hemoglobin 12.1 g/dL (12.0-15.0); Lymphocyte # 1.76 X10^3/ul (0.83-4.51); Lymphocyte % 14.7 % (19-41); Mean Corp Hgb Conc 33.2 g/dL (32-36); Mean Corpuscular Hgb 30.9 pg (27.0-32.0); Mean Corpuscular Volume 93.1 fL (81-99); Mean Platelet Vol. 10.3 fl (6.2-12.0); Monocyte# 0.74 X10^3/uL; Monocyte% 6.2 % (0-10); NRBC Flagged by Analyzer 0 % (0-5); Neutrophil # 9.25 X10^3/uL (2.7-7.7); Neutrophil % 77.4 % (47-70); Platelet Count 243 K/mm3 (150-450); RBC Distribution Width CV 13.2 % (11.6-14.6); RBC Distribution Width SD 44.9 fl (35.1-43.9); Red Blood Count 3.91 M/mm3 (4.2-5.4)
[2023-03-31 19:16] LABS: Syphilis Antibodies Non-reactive
--- NOTE | 2023-03-31 19:33 | HP.PCM.OB_ITS ---
HPI - General General Date of Admission: 03/31/23 HPI Narrative HAVEN RICKS, is a 22 y/o @ 39 weeks 6 days who presents to L&D with the complaint of frequent painful contractions. Her membranes were stripped by Dr. Seals in the office this afternoon. She states that she would prefer a physician only for delivery. During her last she presented to L&D at 8 cm dilated and delivered within 3.5 hours. She was checked by the nurse upon arrival and was found to be 5 cm/90/+1 and posterior. She has walked for an hour and is now back in her room and ready to be rechecked. She denies lof, vaginal bleeding, or dec fm. She prefers to proceed with labor without pain medication or epidural if possible. Maternal Data Information LISA Calculator Estimated Delivery Date Method Current WG Current Estimate 04/01/23 Ultrasound #1 39w 6d Other Estimates 04/09/23 LMP (Certain) 38w 5d PFSH PFSH Medical History Spontaneous vaginal delivery Spontaneous vaginal delivery Home Medications multivitamin no.47-iron fum 27 mg-folate no.1 1 mg-dha 300 mg capsule (PNV-DHA) cap PO 05/12/20 [History Last Taken 03/31/23 08:00 1 cap] ferrous sulfate 325 mg (65 mg iron) tablet (Feosol) 325 mg PO DAILY 02/02/23 [History Last Taken 03/31/23 08:00 325 mg] Allergy/AdvReac Type Severity Reaction Status Date / Time No Known Allergies Allergy Verified 03/31/23 18:00 Family History no significant family his Surgical History History of hernia surgery Social History adopted: No household members: spouse and children number of children: 1 current occupational status: unemployed current occupation: [employer] pets and animals: No history of recent travel: No Smoking Status: Never smoker second hand exposure: No alcohol intake: never substance use type: does not use well-balanced diet: about half the time caffeine: No what type of physical activity do you participate in: walking seatbelt use: always do you feel safe at home: Yes additional social history: Urszula- Works at a [employer] [facility] [employer] History 2 Elective abortions Hx Para 1 Spontaneous abortions Hx # Term Pregnancies 1 Ectopic pregnancies Hx # Pregnancies Multiple births # of living children 1 Past Pregnancies Del. Date Name GA/Weeks Outcome Route Bth Weight Gen Labor Lgth Anesthesia Del Locatn Provider FOB 12/23/20 Adalyn 40 live - full term 7lbs 6oz Female [facility] Wen Delivery Date: 12/23/20 Last Updated by: Leticia Link admitted in active labor Visit Details Expected Delivery Route/Plan Labor Preferences- CB/BF classes: Discussed labor support person: Urszula labor intervention preferences: pain management options preferred: natural cut cord/dad catch: yes : yes PP control planned: [] discussed possible routes of delivery and associated risks: [] special requests: [] Plans Covid status: discussed Flu vaccine: discussed Tdap vaccine: [] Rhogam: [] LARC form signed: [] Problem list reviewed and updated with the most current plan of care details and appropriate orders placed. Relevant counseling for the gestational age provided. Continue routine care and follow up unless otherwise noted in visit notes/problem list details OB Flowsheet Initial Weight: 110 lb Date -?-?-?-?-?-?-?-?-?-?-?-?- EGA Weight BP Urine Prot -?-?-?-?-?-?-?-?-?-?-?-?- Glucose FHR FuHt Pres Dilation -?-?-?-?-?-?-?-?-?-?-?-?- Effaced St Visit Note 09/06/22 -?-?-?-?-?-?-?-?-?-?-?-?- 10w 3d 110 lb 4 oz (+4 oz) 123/75 -?-?-?-?-?-?-?-?-?-?-?-?- 160 -?-?-?-?-?-?-?-?-?-?-?-?- SM- CRL 3.15cm N OT cons with LMP 10/10/22 -?-?-?-?-?-?-?-?-?-?-?-?- 15w 2d 107 lb 8 oz (-2 lb 8 oz) 100/67 -?-?-?-?-?-?-?-?-?-?-?-?- 150 -?-?-?-?-?-?-?-?-?-?-?-?- SM- no vb still nauseated 11/08/22 -?-?-?-?-?-?-?-?-?-?-?-?- 19w 3d 110 lb 8 oz (+8 oz) 112/74 Negative -?-?-?-?-?-?-?-?-?-?--?-?- Negative 135 -?-?-?-?-?-?-?-?-?-?-?-?- KW- + FM. 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 anatomy US today. KW- + FM. no cramping/vb/ctx . no concerns. anatomy US today. 12/08/22 -?-?-?-?-?-?-?-?-?-?-?-?- 23w 5d 115 lb 4 oz (+5 lb 4 oz) 102/68 Negative -?-?-?-?-?-?-?-?-?-?-?-?- Negative 152 -?-?-?-?-?-?-?-?-?-?-?-?- MH-No VB, LOF. G ood FM 01/04/23 -?-?-?-?-?-?-?-?-?-?-?-?- 27w 4d 119 lb 4 oz (+9 lb 4 oz) 108/67 Negative -?-?-?-?-?-?-?-?-?-?-?-?- Negative 145 27 -?-?-?-?-?-?-?-?-?-?-?-?- LC- no vb/ctx/lo f. good fm. passed glucose. declines tdap. 01/19/23 -?-?-?-?-?-?-?-?-?-?-?-?- 29w 5d 120 lb 4 oz (+10 lb 4 oz) 108/67 Negative -?-?-?-?-?-?-?-?-?-?-?-?- Negative 160 27 -?-?-?-?-?-?-?-?-?-?-?-?- JV- no lof, vagi nal bleeding, or dec fm. having a girl. no complaints. 02/02/23 -?-?-?-?-?-?-?-?-?-?-?-?- 31w 5d 124 lb 4 oz (+14 lb 4 oz) 97/61 Negative -?-?-?-?-?-?-?-?-?-?-?-?- Negative 140 32 -?-?-?-?-?-?-?-?-?-?-?-?- JV- no complaint s today. hg is up to 11.9 ok to vang every other day with iron. 02/16/23 -?-?-?-?-?-?-?-?-?-?-?-?- 33w 5d 126 lb 2 oz (+16 lb 2 oz) 116/72 Negative -?-?-?-?-?-?-?-?-?-?-?--?- Negative 145 32 -?-?-?-?-?-?-?-?-?-?-?-?- KW-no vb/lof/ctx . good fm. Discussed possible US after next visit if S<D 03/02/23 -?-?-?-?-?-?-?-?--?-?-?-?- 35w 5d 128 lb 2 oz (+18 lb 2 oz) 108/72 Negative -?-?-?-?-?-?-?-?-?-?-?-?- Negative 145 33 -?-?-?-?-?-?-?-?-?-?-?-?- kw-no vb/lof/ctx . good fm. no concerns today. growth US ordered 03/09/23 -?-?-?-?-?-?-?-?-?-?-?-?- 36w 5d 128 lb 6 oz (+18 lb 6 oz) 129/79 Negative -?-?-?-?-?-?-?-?-?-?-?-?- Negative 135 34 Cephalic 1 .5 -?-?-?-?-?-?-?-?-?-?-?-?- 70 -2 JV- no lof , vaginal bleeding, or dec fm. gbs collected. last week NAIF 11, 13th% growth. 03/16/23 -?-?-?-?-?-?-?-?-?-?-?-?- 37w 5d 129 lb 2 oz (+19 lb 2 oz) 103/69 Negative -?-?-?-?-?-?-?-?--?-?-?-?- Negative 140 34 Cephalic -?-?-?-?-?-?-?-?-?-?-?-?- SM- no vb lof go od fm no regular ctx 03/24/23 -?-?-?-?-?-?-?-?-?-?-?-?- 38w 6d 127 lb 6 oz (+17 lb 6 oz) 114/74 Negative -?-?-?-?-?-?-?-?-?-?-?-?- Negative 130 35 Cephalic 3 2.5 -?-?-?-?-?-?-?-?-?-?-?-?- 80 0 +1 LC-no vb/lof/ct x. good fm. declines growth today. labor precautions provided. LC-no vb/lof/ctx. good fm. d eclines growth today. reviewed with . labor precautions provided. 03/31/23 -?-?-?-?-?-?-?-?-?-?-?-?- 39w 6d 128 lb 6 oz (+18 lb 6 oz) 122/72 Negative -?-?-?-?-?-?-?-?-?-?-?-?- Negative 140 37 Cephalic 4 -?-?-?-?-?-?-?-?-?-?-?-?- 80 +1 SM- SM- no vb lof good fm no reg ular ctx membranes swept ROS Constitutional Constitutional: Denies change in weight, fatigue, fever(s), headache(s), poor appetite or weakness Eyes Eyes: Denies blurry vision, change in vision, seeing flashes or spots in vision ENT HEENT: Denies dizziness, headache(s), loss taste/smell or sore throat Cardiovascular Cardiovascular: Denies chest pain, dizziness, dyspnea, irregular heart rhythm, leg edema, palpitations, rapid heart rate or vomiting Respiratory/Chest Respiratory/Chest: Denies chest tightness, cough, dyspnea or breast pain Gastrointestinal Gastrointestinal: Denies abdominal pain, anorexia, constipation, cramping, diarrhea, hemorrhoids, vomiting or weight changes Genitourinary Genitourinary: Denies dysuria, flank pain, genital lesions, genital pain, urinary frequency or urinary urgency Musculoskeletal Musculoskeletal: Denies back pain, difficulty walking, joint pain, limited range of motion, muscle cramps or numbness Integumentary Integumentary: Denies lesions or unusual bruising Neurologic Neurologic: Denies abnormal movements, abnormal speech, dizziness, numbness, seizure-like activity or syncope Psychiatric Psychiatric: Denies anxiety, behavioral changes, change in appetite, change in libido, cognitive impairment, confusion, depression, difficulty concentrating, hallucinations or suicidal thoughts Endocrine Endocrinology: Denies excessive sweating, polydipsia or polyuria Hematologic/Lymphatic Hematologic/Lymphatic: Denies easy bleeding, easy bruising or lymphadenopathy Allergic/Immunologic Allergic/Immunologic: Denies itchy eyes, lip swelling, seasonal rhinorrhea, rhinitis, throat swelling, tongue swelling, eczemia, wheezing or asthma Vital Signs Vital Signs Vital Signs: 03/31/23 18:13 03/31/23 18:13 03/31/23 19:19 Pulse Rate 94 Blood Pressure 121/60 H 131/68 H BP Systolic 121 131 BP Diastolic 60 68 Pulse Ox 03/31/23 19:19 03/31/23 19:27 03/31/23 19:27 Pulse Rate 98 96 Blood Pressure BP Systolic BP Diastolic Pulse Ox 98 Weight Weight: 127 lb 9.6 oz Body Mass Index (BMI) 24.0 Physical Exam Const alert, oriented x3, no apparent distress and healthy appearing General Appearance: cooperative; Negative for anxious HEENT normocephalic Face and Sinus: normal facial exam Eyes EOMs intact bilaterally and no scleral icterus General Eye: normal appearance of both eyes Neck full ROM and supple Lymph Lymphatic: no lymphadenopathy noted Chest Chest: abnormal inspection of the chest Resp normal respiratory effort Effort and Inspection: able to speak in complete sentences Cardio regular rate GI soft to palpation and non-tender Inspection: gravid Palpation: soft; Negative for tender external exam normal Narrative: cx is 6/90/+1, membranes ruptured artificially and slight blood tinged fluid returned. Amniotic Fluid: ROM+plus Back/Spine no CVA tenderness Extremity normal to inspection, full ROM and no clubbing, cyanosis or edema General Extremity: Negative for calf tenderness or edema Skin Lesions: no lesions Rashes: no rashes Psych mental status grossly normal Labs Labs Labs: Blood Type A POSITIVE Antibody Screen NEGATIVE Hct 36.4 % (37-47) L Hgb 12.1 g/dL (12.0-15.0) Obstetrics Ultrasound Syphilis Total Ab Non-reactive Rubella IgG Antibody Reactive (Nonreactive) Hep Bs Antigen Non-Reactive (Nonreactive) Hepatitis C Antibody Non-Reactive (Nonreactive) Chlamydia DNA (EVELYEN) Negative (Negative) N.gonorrhoeae DNA (EVELYNE) Negative (Negative) HIV 1&2 Antibody Non-Reactive (Nonreactive) Glucose 1 Hr 50 gm 72 mg/dL (70-140) Rhogam given: No Assessment & Plan (1) Supervision of high risk , antepartum: COMMENT: PRR LISA:04/01/23 girl surprise name PC: Juma Spouse: Urszula negative GBS (2) : QUALIFIERS: Weeks of gestation: 39 weeks Qualified Code(s): Z3A.39 - 39 weeks gestation of COMMENT: DOC ONLY. genetic, carrier, ntd declined. nl anatomy PLAN: Plan Patient presents IAL, plan expectant management for , pitocin PRN if needed. AROM was successful during her inital exam Pain management: undecided, or none GBS negative Management of any complications: none I have reviewed the [facility] and made any clinically relevant updates.
[2023-03-31] MEDS: Oxytocin 10 UNITS/ML Vial IM (20:20)
[2023-03-31] MEDS: Methylergonovine 0.2 MG/ML Ampul IM (20:22)
[2023-03-31] MEDS: Lidocaine 1% (20 ml mdv) 20 ML Vial INFILT (20:22)
[2023-03-31] MEDS: Oxytocin 15 Units/NS 250ml 15 UNITS/250 ML IV.SOLN 999 UNITS IV (20:23)
--- NOTE | 2023-03-31 20:29 | OP.PCM_ITS ---
Assessment & Plan (1) Supervision of high risk , antepartum: COMMENT: PRR LISA:04/01/23 girl surprise name PC: Juma Spouse: Urszula negative GBS (2) : QUALIFIERS: Weeks of gestation: 39 weeks Qualified Code(s): Z3A.39 - 39 weeks gestation of COMMENT: DOC ONLY. genetic, carrier, ntd declined. nl anatomy Maternal Data Information LISA Calculator Estimated Delivery Date Method Current WG Current Estimate 04/01/23 Ultrasound #1 39w 6d Other Estimates 04/09/23 LMP (Certain) 38w 5d Final LISA: 04/01/23 Final LISA Source: US >20 weeks Gestational age: 39 weeks 6 days Vaginal Delivery Operative Information Date of Procedure: 03/31/23 Pre-Operative Diagnosis: 22 y/o @ 39 weeks 6 days, active labor Post-Operative Diagnosis: 22 y/o @ 39 weeks 6 days, active labor Surgery / Procedure Performed: Spontaneous Vaginal Delivery Type of Anesthesia: None Estimated Blood Loss: 300cc Time of Delivery: 08:15 Findings Description of Procedure: Patient began pushing and delivered the head in the MITCHELL presentation. The head was delivered atraumatically . The anterior and posterior shoulders delivered without complication followed by the rest of the infant and the infant was placed on the maternal abdomen. Delayed cord clamping was employed for approximately 60 seconds. Cord was clamped and cut and gentle traction was applied to the cord and the placenta delivered spontaneously immediately following it was noted to be intact with three-vessel cord. The perineum and vagina were inspected and noted to have a 1st degree laceration that was repaired using a 2-0 vicryl. EBL was 300cc. Patient and infant tolerated delivery well. Presentation: Vertex Amniotic Membrane Rupture Type: Artificial Amniotic Fluid Description: Clear (slight blood tinged) Placental Delivery Description: Spontaneous Placenta Disposition: [facility] Cord Vessel Description: 3 Vessels Cord Entanglement: None Infant A Gender: Ambiguous (1 minute): 8 (5 minute): 9 Delayed Cord Clamping: Yes Post Vaginal Delivery Medications Given After Delivery: IV Pitocin, IM Pitocin and IM Methergin Episiotomy Description: None Laceration: 1st degree Complication Complications: None Multi Select Codes Urinary/Genital Urinary/Genital CPT Codes: 90975 delivery [facility]
--- NOTE | 2023-03-31 20:33 | DCINST_ITS ---
Discharge Instructions Diet Discharge Diet: No restrictions Activity Discharge Activity: Return to Normal Activity, May Not Drive (while taking narcotic pain medications.) and May Shower May resume sexual activity in: 4-6 weeks Dressing / Incision Call your doctor if your incision/area has: Continuous Slow Oozing, Sudden Increased Bleeding, Increased Pain/ Swelling, Increased Redness and Foul Smelling Discharge Follow Up Care Please Follow Up With: Emelyn Gonzalez, When: Call [phone] to make an appointment with your doctor in 6 weeks. If you had elevated blood pressure or 4th degree laceration, you will need to be seen in 2 weeks. Test Results: Test results from this visit will be discussed in further detail at your follow- up appointment, if applicable. Discharge Plan Admission Admit Date/Time: 03/31/23 18:40 Primary Reason for Your Visit: vaginal delivery Attending Provider: Emelyn Gonzalez Primary Care Provider: Care Physician,No Primary Discharge Orders/Prescriptions Prescriptions: No Action PNV-DHA 27 mg iron-1 mg -300 mg capsule PO ferrous sulfate [Feosol] 325 mg (65 mg iron) tablet 325 mg PO DAILY Referrals / Follow Up: Care Physician,No Primary [Primary Care Provider] - Disposition Disposition (needs filled in before D/C Order can be placed): Home, Self Care
[2023-04-01] VITALS (8 sets, daily range): BP systolic 102–119; BP diastolic 56–65; PULSE 67–120; RESP 16–18; TEMP 36.2–37.2; O2SAT 97–98
[2023-04-01] MEDS: Acetaminophen 500 MG Tablet 1000 MG PO (02:38)
--- NOTE | 2023-04-01 04:17 | PCM.PN.OB ---
Subjective Subjective Patient doing well without complaints. Tolerating PO. Ambulating and voiding without difficulty. Feeding well. Denies chest pain, shortness of breath, calf pain/swelling, fevers, chills, lightheadedness. Objective Data Objective Data Vital Signs: Vital Signs Temp Pulse Resp BP Pulse Ox O2 Del Method 97.2 F L 77 18 109/57 L 97 Room Air 04/01/23 03:45 04/01/23 03:45 04/01/23 03:45 04/01/23 03:45 04/01/23 00:00 04/01/23 03:45 Oxygen Delivery Method Room Air Weight: 127 lb 9.6 oz Body Mass Index (BMI) 24.0 Intake & Output: Intake and Output for Last 24 Hours 03/30/23 03/31/23 04/01/23 23:59 23:59 23:59 Intake Total 250.0 / 250.0 Output Total 300 / 300 400 / 400 Balance -50.0 / -50.0 -400 / -400 Lab / Micro Data Attestation: I reviewed the patient's lab results. 03/31/23 18:25 Labs: Laboratory Results - last 24 hr 03/31/23 18:25: WBC 12.0 H, RBC 3.91 L, Hgb 12.1, Hct 36.4 L, MCV 93.1, MCH 30.9, MCHC 33.2, RDW Std Deviation 44.9 H, RDW Coeff of Kayla 13.2, Plt Count 243, MPV 10.3, Immature Gran % (Auto) 0.500, Neut % (Auto) 77.4 H, Lymph % (Auto) 14.7 L, [place] % (Auto) 6.2, Eos % (Auto) 0.9, Baso % (Auto) 0.3, Absolute Neuts (auto) 9.3 H, Absolute Lymphs (auto) 1.76, Nucleated RBC % 0, Syphilis Total Ab Non-reactive, Blood Type A POSITIVE, Antibody Screen NEGATIVE ROS Constitutional Constitutional: Reports systems reviewed and no addt'l complaints, except as documented; Denies anorexia or headache(s) Cardiovascular Cardiovascular: Reports systems reviewed and no addt'l complaints, except as documented; Denies dizziness, dyspnea, nausea or tachypnea Respiratory/Chest Respiratory/Chest: Reports systems reviewed and no addt'l complaints, except as documented; Denies cough, dyspnea, shortness of breath at rest or tachypnea Gastrointestinal Gastrointestinal: Reports systems reviewed and no addt'l complaints, except as documented; Denies abdominal pain, constipation or nausea Genitourinary Genitourinary: Reports systems reviewed and no addt'l complaints, except as documented; Denies burning urination, difficulty urinating, dysuria, urinary frequency or urinary incontinence Musculoskeletal Musculoskeletal: Reports systems reviewed and no addt'l complaints, except as documented Integumentary Integumentary: Reports systems reviewed and no addt'l complaints, except as documented Neurologic Neurologic: Reports systems reviewed and no addt'l complaints, except as documented; Denies abnormal speech, dizziness or headache(s) Psychiatric Psychiatric: Reports systems reviewed and no addt'l complaints, except as documented Endocrine Endocrinology: Reports systems reviewed and no addt'l complaints, except as documented Hematologic/Lymphatic Hematologic/Lymphatic: Reports systems reviewed and no addt'l complaints, except as documented Physical Exam Const alert, oriented x3 and no apparent distress Neck full ROM Resp normal respiratory effort, normal air movement and no retractions Effort and Inspection: able to speak in complete sentences and symmetric chest movement GI soft to palpation Bladder / Kidney Exam: bladder normal to palpation Uterus Palpation: uterus fundus Extremity normal to inspection and full ROM Psych mental status grossly normal, thought process normal and cooperative Assessment & Plan (1) Spontaneous vaginal delivery: PLAN: s/p PPD # 1 1. routine post delivery care 2. breast feeding- support given 3. rh positive 4. rubella immune Charges/Coding Multi Select Codes Urinary/Genital Urinary/Genital CPT Codes: No Charge
[2023-04-01] MEDS: Ibuprofen 600 MG Tablet PO (18:10)
[2023-04-02 03:22] VITALS: BP 101/51; PULSE 62; RESP 16; TEMP 36.6
[2023-04-02] MEDS: Ibuprofen 600 MG Tablet PO (04:17)
--- NOTE | 2023-04-02 06:28 | PCM.PN.OB ---
Subjective Subjective Patient doing well without complaints. Tolerating PO. Ambulating and voiding without difficulty. Feeding well. Denies chest pain, shortness of breath, calf pain/swelling, fevers, chills, lightheadedness. Objective Data Objective Data Vital Signs: Vital Signs Temp Pulse Resp BP Pulse Ox O2 Del Method 97.9 F 62 16 101/51 L 98 Room Air 04/02/23 03:22 04/02/23 03:22 04/02/23 03:22 04/02/23 03:22 04/01/23 16:39 04/02/23 03:22 Oxygen Delivery Method Room Air Weight: 127 lb 9.6 oz Body Mass Index (BMI) 24.0 Intake & Output: Intake and Output for Last 24 Hours 03/31/23 04/01/23 04/02/23 23:59 23:59 23:59 Intake Total 250.0 / 250.0 Output Total 300 / 300 900 / 900 Balance -50.0 / -50.0 -900 / -900 Lab / Micro Data Attestation: I reviewed the patient's lab results. 03/31/23 18:25 ROS Constitutional Constitutional: Reports systems reviewed and no addt'l complaints, except as documented; Denies anorexia or headache(s) Cardiovascular Cardiovascular: Reports systems reviewed and no addt'l complaints, except as documented; Denies dizziness, dyspnea, nausea or tachypnea Respiratory/Chest Respiratory/Chest: Reports systems reviewed and no addt'l complaints, except as documented; Denies cough, dyspnea, shortness of breath at rest or tachypnea Gastrointestinal Gastrointestinal: Reports systems reviewed and no addt'l complaints, except as documented; Denies abdominal pain, constipation or nausea Genitourinary Genitourinary: Reports systems reviewed and no addt'l complaints, except as documented; Denies burning urination, difficulty urinating, dysuria, urinary frequency or urinary incontinence Musculoskeletal Musculoskeletal: Reports systems reviewed and no addt'l complaints, except as documented Integumentary Integumentary: Reports systems reviewed and no addt'l complaints, except as documented Neurologic Neurologic: Reports systems reviewed and no addt'l complaints, except as documented; Denies abnormal speech, dizziness or headache(s) Psychiatric Psychiatric: Reports systems reviewed and no addt'l complaints, except as documented Endocrine Endocrinology: Reports systems reviewed and no addt'l complaints, except as documented Hematologic/Lymphatic Hematologic/Lymphatic: Reports systems reviewed and no addt'l complaints, except as documented Physical Exam Const alert, oriented x3 and no apparent distress Neck full ROM Resp normal respiratory effort, normal air movement and no retractions Effort and Inspection: able to speak in complete sentences and symmetric chest movement GI soft to palpation Bladder / Kidney Exam: bladder normal to palpation Uterus Palpation: uterus fundus firm Extremity normal to inspection and full ROM Psych mental status grossly normal, thought process normal and cooperative Assessment & Plan (1) Spontaneous vaginal delivery: PLAN: s/p PPD # 2 1. routine post delivery care 2. breast feeding- support given 3. rh positive 4. rubella immune discharge home Charges/Coding Multi Select Codes Urinary/Genital Urinary/Genital CPT Codes: No Charge
[2023-04-02 07:30] VITALS: BP 111/55; PULSE 89; RESP 16; TEMP 36.6; O2SAT 98
[2023-04-02 07:56] VITALS: BP 111/55; PULSE 83
== END 2023-04-02 08:35 | disposition home or self-care (01) | DRG 807 ==
LOC: WPOUT 18:43 → WP 18:43
PROVIDERS: Admitting Provider Advanced Practice Midwife; Visit Provider Obstetrics & Gynecology
DX: O70.0 First degree perineal laceration during delivery (principal); Z37.0 Single live birth; Z3A.39 39 weeks gestation of pregnancy
CPT/HCPCS: 59025; 59050; 85025; 86780; 86850; 86900; 86901; 99221; G0378